=== PATIENT | female | born 1960 | race Caucasian/White ===

== ENCOUNTER 2022-04-18 17:49 | Emergency (ER) | payer SELFPAY ==
[2022-04-18] MEDS ORDERED: AMOX TR-K CLV1 EAC4 PO (20:17)
== END 2022-04-18 21:00 | disposition home or self-care (01) ==
LOC: ER1 17:49
DX: S81.852A Open bite, left lower leg, initial encounter (principal); S71.151A Open bite, right thigh, initial encounter; S61.253A Open bite of left middle finger without damage to nail, initial encounter; W54.0XXA Bitten by dog, initial encounter
CPT/HCPCS: 12002; 73130; 73552; 73590; 90471; 90715; 99283